=== PATIENT | male | born 1950 | race African-American/Black ===

== ENCOUNTER 2017-05-10 20:42 | Emergency (ER) | payer OTHER ==
[~2017-05-10] VITALS: Ht 165.1 cm; Wt 63.5 kg
--- NOTE | 2017-05-10 20:56 | NUR ---
ppt bibra from home to er bed 12 c/o chronic back pain. denies any recent trauma. generalized body aches. denies fever. gowned and placed on monitor. stable vitals. awaiting md silva.
--- NOTE | 2017-05-10 21:34 | NUR ---
prush pa at bedside for eval.
[2017-05-10] MEDS ORDERED: MORPHINE SULFATE INJ 4 MG/ML DISP.SYRIN ONE (21:37)
--- NOTE | 2017-05-10 21:40 | NUR ---
medicated as ordered.
[2017-05-10] MEDS ORDERED: MORPHINE SULFATE INJ 2 MG/ML DISP.SYRIN IM ONE (22:00)
--- NOTE | 2017-05-10 22:48 | NUR ---
Patient discharged to home in stable condition. Written and verbal after care instructions given. Patient verbalizes understanding of instruction.
[2017-05-10 22:49] VITALS: BP 132/74
== END 2017-05-10 22:49 | disposition home or self-care (01) ==
LOC: ER 20:43
DX: M54.5 Low back pain (principal); I10 Essential (primary) hypertension; Z88.2 Allergy status to sulfonamides
CPT/HCPCS: A4606; J2270; Z7610

== ENCOUNTER 2017-11-21 06:26 | Inpatient (IN) | payer OTHER ==
[~2017-11-21] VITALS: Ht 177.8 cm; Wt 56.4 kg
[2017-11-21 08:46] VITALS: BP 139/96
[2017-11-21 09:04] LABS: BASOPHILS % (AUTO) 0.2 % (0.0-2.0); EOSINOPHILS % (AUTO) 0.1 % (0.0-6.0); HEMATOCRIT 32 % (39-51); HEMOGLOBIN 10.7 g/dL (13.5-17.5); MEAN CORPUSCULAR HEMOGLOBIN 29 PG (26.0-33.0); MEAN CORPUSCULAR HGB CONC 33 g/dl (31.0-36.0); MEAN CORPUSCULAR VOLUME 87 fL (80-96); MONOCYTES # (AUTO) 0.6 /CMM (0.1-1.30); MONOCYTES % (AUTO) 6.4 % (2.0-12.0); NEUTROPHILS % (AUTO) 81.3 % (43.0-81.0); PLATELET COUNT (AUTO) 155 /CMM (150-450); RDW COEFFICIENT OF VARIATION 16.6 (11.5-15.0); RED BLOOD CELL COUNT(AUTO) 3.71 MIL/uL (4.5-6.0); WHITE BLOOD COUNT (AUTO) 8.7 K/uL (4.3-11.0)
[2017-11-21 09:14] LABS: CALCIUM, SERUM 8.6 mg/dL (8.5-10.1); CREATININE 0.6 mg/dL (0.6-1.3); POTASSIUM 3.8 mmol/L (3.5-5.1)
[2017-11-21 09:28] LABS: ALBUMIN 2.7 g/dL (3.4-5.0); BILIRUBIN,TOTAL 0.8 mg/dL (0.2-1.0); MAGNESIUM 2.3 mg/dL (1.8-2.4); PHOSPHORUS 2.4 mg/dL (2.5-4.9); TOTAL PROTEIN, SERUM 7.4 g/dL (6.4-8.2)
[2017-11-21] MEDS: ENOXAPARIN SODIUM 40 MG/0.4 ML DISP.SYRIN SQ SCH (09:59)
[2017-11-21] MEDS ORDERED: MAG HYDROX/AL HYDROX/SIMETH 30 ML UDC PO PRN (10:00)
[2017-11-21] MEDS ORDERED: ACETAMINOPHEN 325 MG TABLET PO PRN (10:00)
[2017-11-21] MEDS ORDERED: MORPHINE SULFATE INJ 2 MG/ML DISP.SYRIN IV PRN (10:00)
[2017-11-21] MEDS ORDERED: MAGNESIUM HYDROXIDE 30 ML UDC PO PRN (10:00)
[2017-11-21] MEDS ORDERED: ZOLPIDEM TARTRATE 5 MG TABLET PO PRN (10:00)
[2017-11-21] MEDS ORDERED: Z GUARD REMEDY 2 OZ OINT TP PRN (10:00)
[2017-11-21] MEDS ORDERED: ONDANSETRON HCL/PF 4 MG/2 ML VIAL IVP PRN (10:00)
[2017-11-21 10:17] LABS: THYROID STIMULATING HORMONE 0.534 uIU/mL (0.358-3.74)
[2017-11-21] MEDS: IV NS 0.9% 1,000 ML IV PRN (11:32)
[2017-11-21] MEDS: HYDROMORPHONE INJ 0.5 MG/0.5 ML SYRINGE IV PRN ×3 (11:35→23:38)
[2017-11-21] MEDS ORDERED: K PHOS NEUTRAL 250 MG TABLET PO ONE (13:00)
[2017-11-21] MEDS: HYDROCODONE/APAP 5/325MG 1 EACH TABLET PO PRN ×2 (15:08→21:36)
[2017-11-21 16:00] VITALS: BP 111/65
[2017-11-21 20:00] VITALS: BP_SYST 123; BP_DIAS 92; BP_DIAS 95
[2017-11-22] VITALS: BP 128/69
[2017-11-22] MEDS: HYDROCODONE/APAP 5/325MG 1 EACH TABLET PO PRN ×4 (01:40→17:40)
[2017-11-22 04:00] VITALS: BP 127/70
[2017-11-22 07:48] LABS: BASOPHILS % (AUTO) 0.3 % (0.0-2.0); EOSINOPHILS % (AUTO) 0.4 % (0.0-6.0); HEMATOCRIT 29 % (39-51); HEMOGLOBIN 9.7 g/dL (13.5-17.5); LYMPHOCYTES # (AUTO) 1.3 /CMM (0.8-4.8); LYMPHOCYTES % (AUTO) 18.6 % (20.0-44.0); MEAN CORPUSCULAR HEMOGLOBIN 29 PG (26.0-33.0); MEAN CORPUSCULAR HGB CONC 34 g/dl (31.0-36.0); MEAN CORPUSCULAR VOLUME 87 fL (80-96); MONOCYTES # (AUTO) 0.9 /CMM (0.1-1.30); MONOCYTES % (AUTO) 12.3 % (2.0-12.0); NEUTROPHILS # (AUTO) 4.9 /CMM (1.8-8.9); NEUTROPHILS % (AUTO) 68.4 % (43.0-81.0); PLATELET COUNT (AUTO) 160 /CMM (150-450); RDW COEFFICIENT OF VARIATION 16.6 (11.5-15.0); RED BLOOD CELL COUNT(AUTO) 3.32 MIL/uL (4.5-6.0); WHITE BLOOD COUNT (AUTO) 7.1 K/uL (4.3-11.0)
[2017-11-22 08:00] VITALS: BP 135/40
[2017-11-22 08:15] LABS: CALCIUM, SERUM 8.3 mg/dL (8.5-10.1); CREATININE 0.5 mg/dL (0.6-1.3); MAGNESIUM 2.3 mg/dL (1.8-2.4); PHOSPHORUS 2.2 mg/dL (2.5-4.9); POTASSIUM 3.7 mmol/L (3.5-5.1)
[2017-11-22] MEDS: ENOXAPARIN SODIUM 40 MG/0.4 ML DISP.SYRIN SQ SCH (08:15)
[2017-11-22] MEDS ORDERED: GABA800T2 PO (08:31)
[2017-11-22] MEDS ORDERED: ABAC1TAB15 PO (08:31)
[2017-11-22] MEDS ORDERED: DARU1TAB PO (08:31)
[2017-11-22] MEDS ORDERED: [UNRECOGNIZED DRUG - CODE] PO (08:31)
[2017-11-22] MEDS ORDERED: LISI40TA4 PO (08:31)
[2017-11-22] MEDS ORDERED: RILP25TA PO (08:31)
[2017-11-22] MEDS: NEUTRA PHOS 1 POWD.PACKET PO SCH ×2 (10:25→17:37)
[2017-11-22] MEDS: HYDROMORPHONE INJ 0.5 MG/0.5 ML SYRINGE IV PRN (10:26)
[2017-11-22 12:00] VITALS: BP 128/69
[2017-11-22] MEDS: IV NS 0.9% 1,000 ML IV PRN (13:54)
[2017-11-22] MEDS: SOD FERRIC GLUC 125 MG in IV NS 0.9% 100 ML IV SCH (14:15)
[2017-11-22 16:00] VITALS: BP 136/71
[2017-11-22 20:00] VITALS: BP 128/58
[2017-11-22] MEDS ORDERED: oxyCODONE/APAP (5/325 MG) 1 UDTAB TABLET PO PRN (20:00)
[2017-11-22] MEDS ORDERED: GABAPENTIN 400 MG CAPSULE PO SCH (20:00)
[2017-11-23 03:15] VITALS: BP 136/78
[2017-11-23] MEDS: HYDROCODONE/APAP 5/325MG 1 EACH TABLET PO PRN (03:18)
[2017-11-23] MEDS: HYDROMORPHONE INJ 0.5 MG/0.5 ML SYRINGE IV PRN (04:42)
[2017-11-23 08:00] VITALS: BP 134/72
[2017-11-23] MEDS: ENOXAPARIN SODIUM 40 MG/0.4 ML DISP.SYRIN SQ SCH (08:31)
[2017-11-23] MEDS: GABAPENTIN 400 MG CAPSULE PO SCH ×3 (08:37→17:02)
[2017-11-23] MEDS ORDERED: Darunavir/Cobicistat (Prezcobix 800 mg-150 mg Tablet PO SCH (09:00)
[2017-11-23] MEDS ORDERED: DULOXETINE HCL 30 MG CAPSULE.DR PO SCH (09:00)
[2017-11-23] MEDS ORDERED: LISINOPRIL (20MG) 20 MG TABLET PO SCH (09:00)
[2017-11-23] MEDS ORDERED: Abacavir/Dolutegravir/Lamivudi (Triumeq Tablet) PO SCH (09:00)
[2017-11-23] MEDS ORDERED: [UNRECOGNIZED DRUG - OTHER] PO SCH (09:00)
[2017-11-23] MEDS: BOOST PLUS FOOD-VANILLA 237 ML BOX PO SCH ×3 (09:37→17:02)
[2017-11-23] MEDS: IBUPROFEN 600 MG TABLET PO SCH ×2 (12:11→20:39)
[2017-11-23] MEDS: SOD FERRIC GLUC 125 MG in IV NS 0.9% 100 ML IV SCH (14:06)
[2017-11-23] MEDS ORDERED: IOHEXOL-300 100 ML VIAL IV ONE (15:29)
[2017-11-23 16:00] VITALS: BP 123/70
[2017-11-23] MEDS ORDERED: BOOST PLUS FOOD-CHOCLATE 237 ML BOX PO SCH (17:00)
[2017-11-23 18:40] VITALS: BP 123/70
[2017-11-23 20:00] VITALS: BP 149/80
[2017-11-24] MEDS: IBUPROFEN 600 MG TABLET PO SCH (05:47)
[2017-11-24 08:00] VITALS: BP 110/57
[2017-11-25 08:18] LABS: IMMUNOGLOBULIN A, SERUM 193 mg/dL (61-437); IMMUNOGLOBULIN G, SERUM 861 mg/dL (700-1600); IMMUNOGLOBULIN M, SERUM 65 mg/dL (20-172)
[2017-11-26 05:14] LABS: *SPE A/G RATIO 0.7 (0.7-1.7); *SPE ALBUMIN 2.4 g/dL (2.9-4.4); *SPE ALPHA-1-GLOBULIN 0.5 g/dL (0.0-0.4); *SPE GLOBULIN, TOTAL 3.3 g/dL (2.2-3.9); *SPE M-SPIKE Not Observed g/dL (Not Observed); *SPEGAMMA GLOBULIN 0.8 g/dL (0.4-1.8)
== END 2017-11-24 10:45 | disposition left against medical advice (07) | DRG 371 ==
LOC: MED 07:59 → TELE 08:17 → MED 11-22 09:40
PROVIDERS: ADMIT Internal Medicine; ATTEND Internal Medicine
PROC: 5A1D70Z Performance of Urinary Filtration, Intermittent, Less than 6 Hours Per Day (ICD-10-PCS; principal; 2017-11-22)
DX: A04.72 Enterocolitis due to Clostridium difficile, not specified as recurrent (principal); E43 Unspecified severe protein-calorie malnutrition; E83.39 Other disorders of phosphorus metabolism; F11.20 Opioid dependence, uncomplicated; D50.9 Iron deficiency anemia, unspecified; F17.200 Nicotine dependence, unspecified, uncomplicated; M47.16 Other spondylosis with myelopathy, lumbar region; Z68.1 Body mass index [BMI] 19.9 or less, adult; R64 Cachexia; D63.8 Anemia in other chronic diseases classified elsewhere; G89.3 Neoplasm related pain (acute) (chronic); E86.0 Dehydration; M79.2 Neuralgia and neuritis, unspecified; M54.9 Dorsalgia, unspecified; R62.7 Adult failure to thrive; I10 Essential (primary) hypertension; Z85.46 Personal history of malignant neoplasm of prostate
CPT/HCPCS: 36415; 71045-TC; 80048-TC; 80053-TC; 80061-TC; 82306; 82728-TC; 82746; 82784; 83540-TC; 83735-TC; 84100-TC; 84155; 84165; 84439-TC; 84443-TC; 84484-TC; 85025-TC; 85652-TC; 86334; 86706; 86803; 87045-TC; 87081-TC; 87340; 89055; 90935-TC; 93307-TC; 97110-TC; 97530-TC; A4606; J1650; J2916; J7030; Q9967; Z7610

== ENCOUNTER 2018-01-04 13:40 | Emergency (ER) | payer OTHER ==
[~2018-01-04] VITALS: Ht 182.9 cm; Wt 63.5 kg
[~2018-01-04 13:40] MED LIST: ABAC1TAB15 PO; DARU1TAB PO; GABA800T2 PO; LISI40TA4 PO; RILP25TA PO; [UNRECOGNIZED DRUG - CODE] PO
--- NOTE | 2018-01-04 13:50 | NUR ---
PT ELMER FROM HOME TO ER BED 15 C/O LOWER BACK PAIN R/T BLE. STATES CHRONIC AND IS WORST TODAY. PT STATES WAS SUPPOSED TO GO TO PT WEDNESDAY BUT TRANSPORT TO PICK HIM UP CAME LATE. DENIES ANY RECENT TRAUMA, UNABLE TO WALK AND JUST STAYS IN BED. STABLE VITALS. TAKES MOTRIN FOR PAIN AND LAST TOOK IT YESTERDAY W/ NO RELIEF. AWAITING MD PAUL.
--- NOTE | 2018-01-04 14:48 | NUR ---
DR LUIS AT BEDSIDE FOR EVAL.
[2018-01-04] MEDS ORDERED: ONDANSETRON HCL/PF 4 MG/2 ML VIAL IVP ONE (15:00)
[2018-01-04] MEDS ORDERED: MORPHINE SULFATE INJ 2 MG/ML DISP.SYRIN IV ONE (15:00)
[2018-01-04] MEDS ORDERED: ONDANSETRON HCL/PF 4 MG/2 ML VIAL ONE (15:10)
[2018-01-04] MEDS ORDERED: MORPHINE SULFATE INJ 2 MG/ML DISP.SYRIN ONE (15:11)
[2018-01-04 15:12] LABS: BASOPHILS % (AUTO) 0.6 % (0.0-2.0); EOSINOPHILS % (AUTO) 0.3 % (0.0-6.0); HEMATOCRIT 25 % (39-51); HEMOGLOBIN 8.4 g/dL (13.5-17.5); LYMPHOCYTES % (AUTO) 31.8 % (20.0-44.0); MEAN CORPUSCULAR HGB CONC 34 g/dl (31.0-36.0); MEAN CORPUSCULAR VOLUME 81 fL (80-96); MONOCYTES # (AUTO) 0.6 /CMM (0.1-1.30); MONOCYTES % (AUTO) 9.9 % (2.0-12.0); NEUTROPHILS # (AUTO) 3.7 /CMM (1.8-8.9); NEUTROPHILS % (AUTO) 57.4 % (43.0-81.0); PLATELET COUNT (AUTO) 95 /CMM (150-450); RDW COEFFICIENT OF VARIATION 18.7 (11.5-15.0); RED BLOOD CELL COUNT(AUTO) 3.12 MIL/uL (4.5-6.0); WHITE BLOOD COUNT (AUTO) 6.3 K/uL (4.3-11.0)
--- NOTE | 2018-01-04 15:12 | NUR ---
PT TO RADIOLOGY FOR ABDOMINAL CT SCAN VIA [facility].
--- NOTE | 2018-01-04 15:43 | NUR ---
PT STILL UNABLE TO URINATE. URINAL OFFERED AT BEDSIDE.
--- NOTE | 2018-01-04 15:59 | NUR ---
PT APPEARS MORE RELAXED, BUT WHEN ASKED ABOUT PAIN LEVEL PT IS STILL SAYING HE IS STILL HAVING 10/10 PAIN. STABLE VITALS.
[2018-01-04 16:17] LABS: BAND % (MANUAL) 2 % (0.0-5.0); LYMPHOCYTES % (MANUAL) 37 % (16-48); MONOCYTES % (MANUAL) 16 % (0-11.0); NEUTROPHILS % (MANUAL) 45 (42-76)
[2018-01-04 16:22] LABS: ALBUMIN 2.2 g/dL (3.4-5.0); BILIRUBIN,DIRECT 0.1 mg/dL (0.0-0.2); BILIRUBIN,TOTAL 0.4 mg/dL (0.2-1.0); CALCIUM, SERUM 7.4 mg/dL (8.5-10.1); CREATININE 0.4 mg/dL (0.6-1.3); POTASSIUM 3.5 mmol/L (3.5-5.1); TOTAL PROTEIN, SERUM 6.2 g/dL (6.4-8.2)
[2018-01-04 16:35] LABS: APPEARANCE,URINE CLEAR (CLEAR); BILIRUBIN,URINE NEGATIVE (NEGATIVE); BLOOD, URINE TRACE Ery/uL (NEGATIVE); COLOR,URINE YELLOW (YELLOW); KETONES,URINE NEGATIVE (NEGATIVE); LEUKOCYTE ESTERASE ,URINE NEGATIVE (NEGATIVE); NITRITE, URINE NEGATIVE (NEGATIVE); PH,URINE 7.5 (5.0-8.0); PROTEIN,URINE NEGATIVE (NEGATIVE); UGLUCOSE NEGATIVE (NEGATIVE)
[2018-01-04 16:37] LABS: BACTERIA,URINE None seen /HPF (None Seen); RBC,URINE 0-2 /HPF (0-2); SQUAMOUS EPITHELIAL CELL,UR Rare /HPF (None Seen); WBC,URINE 0-2 /HPF (0-3)
--- NOTE | 2018-01-04 17:26 | NUR ---
CALLED [facility] FOR TRANSPORT ETA OF 1743 WAS GIVEN.
--- NOTE | 2018-01-04 18:16 | NUR ---
[facility] AT BEDSIDE FOR PT TRANSPORT. STABLE CONDITION. D/C HOME.
[2018-01-04 18:19] VITALS: BP 150/65
[2018-01-29] MEDS ORDERED: MORPHINE SULFATE INJ 2 MG/ML DISP.SYRIN IV ONE (17:30)
[2018-01-29] MEDS ORDERED: ONDANSETRON HCL/PF 4 MG/2 ML VIAL IV ONE (17:30)
== END 2018-01-04 18:21 | disposition home or self-care (01) ==
LOC: ER 13:41
DX: G89.29 Other chronic pain (principal); M54.9 Dorsalgia, unspecified; N13.39 Other hydronephrosis; D64.9 Anemia, unspecified; R94.5 Abnormal results of liver function studies; I10 Essential (primary) hypertension; Z88.2 Allergy status to sulfonamides; Z88.8 Allergy status to other drugs, medicaments and biological substances; Z79.899 Other long term (current) drug therapy
CPT/HCPCS: 36415; 80048-TC; 80076-TC; 81000-TC; 83690-TC; 85025-TC; A4606; J2270; J2405; Z7610

== ENCOUNTER 2018-01-29 16:59 | Inpatient (IN) | payer OTHER ==
[~2018-01-29] VITALS: Ht 177.8 cm; Wt 50.1 kg
[2018-01-29 17:32] LABS: BASOPHILS # (AUTO) 0.1 /CMM (0.0-0.2); EOSINOPHILS % (AUTO) 0.1 % (0.0-6.0); HEMATOCRIT 24 % (39-51); HEMOGLOBIN 7.9 g/dL (13.5-17.5); LYMPHOCYTES # (AUTO) 2.4 /CMM (0.8-4.8); LYMPHOCYTES % (AUTO) 34.7 % (20.0-44.0); MEAN CORPUSCULAR HGB CONC 33 g/dl (31.0-36.0); MEAN CORPUSCULAR VOLUME 81 fL (80-96); MONOCYTES # (AUTO) 0.7 /CMM (0.1-1.30); MONOCYTES % (AUTO) 10.6 % (2.0-12.0); NEUTROPHILS # (AUTO) 3.7 /CMM (1.8-8.9); NEUTROPHILS % (AUTO) 53.6 % (43.0-81.0); RDW COEFFICIENT OF VARIATION 21.1 (11.5-15.0); RED BLOOD CELL COUNT(AUTO) 2.99 MIL/uL (4.5-6.0); WHITE BLOOD COUNT (AUTO) 6.9 K/uL (4.3-11.0)
[2018-01-29 17:36] LABS: PLATELET COUNT (AUTO) 45 /CMM (150-450)
--- NOTE | 2018-01-29 17:58 | NUR ---
CALLED NURSING SUP. FOR MS BED
[2018-01-29 18:00] LABS: ALBUMIN 1.9 g/dL (3.4-5.0); BILIRUBIN,DIRECT 0.1 mg/dL (0.0-0.2); BILIRUBIN,TOTAL 0.3 mg/dL (0.2-1.0); CREATININE 0.5 mg/dL (0.6-1.3); POTASSIUM 3.5 mmol/L (3.5-5.1); TOTAL PROTEIN, SERUM 6.3 g/dL (6.4-8.2)
[2018-01-29 18:43] LABS: BAND % (MANUAL) 1 % (0.0-5.0); EOSINOPHILS % (MANUAL) 1 % (0-4); LYMPHOCYTES % (MANUAL) 29 % (16-48); MONOCYTES % (MANUAL) 15 % (0-11.0); NEUTROPHILS % (MANUAL) 50 (42-76); REACTIVE LYMPHOCYTES 4 % (0-0)
--- NOTE | 2018-01-29 19:21 | NUR ---
PT STILL UNABLE TO GIVE URINE SAMPLE.
--- NOTE | 2018-01-29 20:00 | NUR ---
URINE SENT TO LAB
--- NOTE | 2018-01-29 20:24 | NUR ---
MS 326-1
[2018-01-29 20:41] LABS: APPEARANCE,URINE CLEAR (CLEAR); BILIRUBIN,URINE NEGATIVE (NEGATIVE); BLOOD, URINE TRACE Ery/uL (NEGATIVE); COLOR,URINE YELLOW (YELLOW); KETONES,URINE NEGATIVE (NEGATIVE); LEUKOCYTE ESTERASE ,URINE NEGATIVE (NEGATIVE); NITRITE, URINE NEGATIVE (NEGATIVE); PH,URINE 7.5 (5.0-8.0); PROTEIN,URINE 1+ mg/dl (NEGATIVE); UGLUCOSE NEGATIVE (NEGATIVE)
[2018-01-29 21:05] VITALS: BP 127/79
[2018-01-29 21:08] LABS: BACTERIA,URINE 1+ /HPF (None Seen); SQUAMOUS EPITHELIAL CELL,UR 0-2 /HPF (None Seen)
[2018-01-29 21:09] LABS: MUCUS,URINE Few /LPF (None Seen)
--- NOTE | 2018-01-29 21:10 | NUR ---
MS RN OPENING NOTE RECEIVED PATIENT FROM ER, ON A GURNEY. PATIENT IS ALERT ORIENTED X3, IN NO APPARENT DISTRESS OR DISCOMFORT AT THIS TIME. ON ROOM AIR. TOLERATING WELL. RESPIRATIONS EVEN AND UNLABORED. PATIENT REPORTS MILD 3/10 LOWER BACK PAIN AT THIS TIME WHEN REPOSITIONED. DENIES SOB. PATIENT WITH L AC 20G SL. PATENT AND INTACT. ADMITTED TO [facility] FLOOR. PATIENT CAME IN WITH DIAPER FOR ELIMINATION, STATES HE'S BEEN UNABLE TO WALK LATELY DUE TO SEVERE BACK PAIN. APPEARS VERY MALNOURISHED, HX OE 40LB LOSS IN THE PAST YEAR AND NEWLY DIAGNOSED PROSTATE CANCER. PATIENT WAS MADE COMFORTABLE IN BED, ALL BELONGINGS ARE CHECKED AND ACCOUNTED FOR. SAFETY MEASURES IN PLACE, BED IN LOW LOCKED POSITION, SIDE RAILS UP X2, CALL LIGHT WITHIN EASY REACH, WILL CONTINUE TO MONITOR AND CARRY OUT ALL THE ADMISSION ORDERS ACCORDINGLY.
--- NOTE | 2018-01-29 21:16 | NUR ---
PT WAS ADMITTED IN-PATIENT. TO 326
[2018-01-29] MEDS ORDERED: MORPHINE SULFATE INJ 2 MG/ML DISP.SYRIN IV PRN (22:30)
[2018-01-29] MEDS ORDERED: ONDANSETRON HCL/PF 4 MG/2 ML VIAL IVP PRN (22:30)
[2018-01-29] MEDS ORDERED: Z GUARD REMEDY 2 OZ OINT TP PRN (22:30)
[2018-01-29] MEDS ORDERED: MAGNESIUM HYDROXIDE 30 ML UDC PO PRN (22:30)
[2018-01-29] MEDS ORDERED: ACETAMINOPHEN 325 MG TABLET PO PRN (22:30)
[2018-01-29] MEDS ORDERED: MAG HYDROX/AL HYDROX/SIMETH 30 ML UDC PO PRN (22:30)
[2018-01-29] MEDS ORDERED: ZOLPIDEM TARTRATE 5 MG TABLET PO PRN (22:30)
[2018-01-29 23:00] VITALS: BP 127/79
--- NOTE | 2018-01-30 06:30 | NUR ---
RN NOTE PATIENT IN BED APPEARS IN DISTRESS, REPORTS PAIN 9/10 IN THE ABDOMINAL AREA, RADIATES TO BACK. PRECIPITATING FACTORS ARE CHANGING OF POSITION AND TRYING TO URINATE. PATIENT ASKED FOR PAIN MEDICATION. GAVE NORCO 10-325MG AT THIS TIME. WILL CONTINUE TO MONITOR.
[2018-01-30] MEDS: HYDROCODONE/APAP 10/325MG 1 EA TABLET PO PRN ×2 (06:31→20:45)
--- NOTE | 2018-01-30 07:10 | NUR ---
MSRN OPENING NOTES. PT RECEIVED A&0X3, ASLEEP BUT EASILY AWOKEN. PT TOLERATING ROOM AIR WITHOUT SOB OR RESP DISTRESS. PT DENIES REPORTS SEVERE BACK PAIN, RN ENDORSED PT HAVING ABDO PAIN ON URINATION. PT WITH IVC L AC G#20 INTACT AND SALINE FLUSH PATENT. PT INDEPENDENT WITH BED POSITIONING BUT ENCOURAGED AND ASSISTED TO OFFLOAD AND REPOSITION. PT BED IN LOWEST LOCKED POSITION WITH HANDRAILSX2 AND CALL PIMENTEL WITHIN REACH. PT BRIEFED ON TODAY'S POC AND IS WITHOUT CONCERN OR COMPLAINT.
--- NOTE | 2018-01-30 07:20 | NUR ---
MS RN CLOSING NOTE RECEIVED PATIENT IN BED, ALERT ORIENTED X3, ON ROOM IR SATURATING ABOVE 93%. PATIENT APPEARS IN DISTRESS DUE TO ABDOMINAL PAIN WHICH IS STILL NOT RESOLVED AFTER TAKING PAIN MEDICATION. DENIES SOB AT THIS TIME. REPORT GIVEN TO AM NURSE TO KEEP PATIENT MONITORED AND REASSESS WHEN NEEDED. PATIENT REPORTS HAVING THIS PAIN BEFORE AND STATES THAT IT IS DUE TO HIS PROSTATE CANCER. THE PAIN SUDDENLY STARTED ABOUT AN HOUR AGO. PATIENT WAS SLEEPING COMFORTABLE THE WHOLE NITE. ABLE TO COMMUNICATE NEEDS. LAC 20G SL PATENT AND INTACT. PATIENT WITH DVT PUMPS. WEARS DIAPER FOR ELIMINATION. NON AMBULATORY DUE TO PAIN AND GENERALIZED WEAKNESS BUT IS ORIENTED TO OWN ABILITIES. ALL NEEDS ATTENDED, SAFETY MEASURES IN PLACE, BED IN LOW LOCKED POSITION, SIDE RAILS UP X2, CALL LIGHT WITHIN EASY REACH. WILL ENDORSE TO AM NURSE FOR BUDDY.
[2018-01-30 07:44] LABS: BASOPHILS % (AUTO) 0.2 % (0.0-2.0); EOSINOPHILS % (AUTO) 0.1 % (0.0-6.0); HEMATOCRIT 25 % (39-51); HEMOGLOBIN 7.8 g/dL (13.5-17.5); LYMPHOCYTES # (AUTO) 2.3 /CMM (0.8-4.8); LYMPHOCYTES % (AUTO) 31.3 % (20.0-44.0); MEAN CORPUSCULAR HGB CONC 32 g/dl (31.0-36.0); MEAN CORPUSCULAR VOLUME 81 fL (80-96); MONOCYTES # (AUTO) 0.8 /CMM (0.1-1.30); MONOCYTES % (AUTO) 11.3 % (2.0-12.0); NEUTROPHILS # (AUTO) 4.3 /CMM (1.8-8.9); NEUTROPHILS % (AUTO) 57.1 % (43.0-81.0); RDW COEFFICIENT OF VARIATION 21.2 (11.5-15.0); RED BLOOD CELL COUNT(AUTO) 3.07 MIL/uL (4.5-6.0); WHITE BLOOD COUNT (AUTO) 7.4 K/uL (4.3-11.0)
[2018-01-30 07:59] LABS: PLATELET COUNT (AUTO) 33 /CMM (150-450)
[2018-01-30 08:00] VITALS: BP 105/64
[2018-01-30 08:32] LABS: CALCIUM, SERUM 7.8 mg/dL (8.5-10.1); CREATININE 0.5 mg/dL (0.6-1.3); MAGNESIUM 2.2 mg/dL (1.8-2.4); POTASSIUM 3.2 mmol/L (3.5-5.1)
[2018-01-30 08:40] LABS: THYROID STIMULATING HORMONE 1.058 uIU/mL (0.358-3.74)
[2018-01-30] MEDS: LISINOPRIL (10MG) 10 MG TABLET PO SCH (08:40)
[2018-01-30] MEDS: GABAPENTIN 400 MG CAPSULE PO SCH ×2 (08:48→16:58)
[2018-01-30] MEDS ORDERED: [UNRECOGNIZED DRUG - OTHER] PO SCH (09:00)
[2018-01-30 10:39] LABS: BAND % (MANUAL) 4 % (0.0-5.0); LYMPHOCYTES % (MANUAL) 36 % (16-48); MONOCYTES % (MANUAL) 13 % (0-11.0); NEUTROPHILS % (MANUAL) 47 (42-76)
[2018-01-30] MEDS: POTASSIUM CHLORIDE 20 MEQ TAB.PRT.SR PO SCH ×2 (10:47→12:13)
--- NOTE | 2018-01-30 11:20 | NUR ---
MSRN. PT NOTED WITH GURGLING WHEN USING STRAW, STRAWS REMOVED AND PROFESSOR OF FINE ART NOTIFIED. NO PROBLEMS USING CUP OR SWALLOWING FOOD. PROFESSOR OF FINE ART TO FOLLOW UP.
[2018-01-30] MEDS ORDERED: K PHOS NEUTRAL 250 MG TABLET PO ONE (12:00)
--- NOTE | 2018-01-30 12:54 | NUR ---
JONO. PT WITH EPISODE OF COUGHING AND GURGLING DURING MEAL. PT ASSISTED TO TRIPOD POSITION, AND ABLE TO EXPECTORATE. TRADESHOW WORKER HEATHER INFORMED AND PT REVIEWED. TRADESHOW WORKER REQUESTING DIET CHANGED TO NPO, ORDERS PLACED. Addendum: 01/30/18 at 1816 by DAISHA ROSENTHAL RN NPO EXCEPT MEDS
[2018-01-30] MEDS: NYSTATIN (PYXIS) 500,000 UNIT/5 ML ORAL.SUSP PO SCH ×2 (13:13→16:58)
[2018-01-30] MEDS: FLUCONAZOLE (100 MG) 100 MG TABLET PO SCH (15:11)
[2018-01-30] MEDS: HYDROCODONE/APAP 5/325MG 1 EACH TABLET PO PRN (15:11)
[2018-01-30 16:00] VITALS: BP 123/69
--- NOTE | 2018-01-30 18:16 | NUR ---
MSRN CLOSING NOTES. PT REMAINS A&0X3. PT NOW NPO AND AWAITING SWALLOW EVAL. PT TOLERATING ROOM AIR WITHOUT SOB OR RESP DISTRESS. PT REPORTS ADEQUATE PAIN MANAGEMENT AT THIS TIME- EXCEPT WHEN DURING URINATION WHERE PT REPORTS SEVERE LOWER ABDO PAIN- MD AWARE. PT WITH IVC L AC G#20 INTACT AND SL. PT ASSISTED WITH OFFLOADING AND REPOSITIONING. PT BED IN LOWEST LOCKED POSITION WITH HANDRAILSX2 AND CALL PIMENTEL WITHIN REACH. ALL DAY NURSE DUTIES ATTENDED TO AND PT IS WITHOUT CONCERN OR COMPLAINT AT THIS TIME. WILL ENDORSE TO NIGHT NURSE AT BEDSIDE FOR BUDDY.
--- NOTE | 2018-01-30 19:35 | NUR ---
MS RN OPENING NOTES RECEIVED PT LAYING IN BED WITH HOB SLIGHTLY ELEVATED. AWAKE AND RESPONSIVE. RESPIRATIONS ARE EVEN AND UNLABORED, NOT IN ANY ACUTE DISTRESS NOTED. NO C/O SOB, N/V. IV SITE INTACT, NO INFILTRATION NOTED. DRESSING KEPT CLEAN AND DRY. SAFETY MEASURES ARE IN PLACE. INSTRUCTED PT TO USE CALL LIGHT WHEN ASSISTANCE IS NEEDED, CALL LIGHT IS LEFT WITHIN REACH. WILL CONTINUE TO MONITOR THROUGHOUT SHIFT.
[2018-01-30 20:00] VITALS: BP 109/63
[2018-01-31] MEDS: HYDROCODONE/APAP 10/325MG 1 EA TABLET PO PRN ×3 (04:08→16:54)
--- NOTE | 2018-01-31 06:34 | NUR ---
MS RN CLOSING NOTES NEEDS MET AND ANTICIPATED. AWAKE AND RESPONSIVE. RESPIRATIONS ARE EVEN AND UNLABORED, NOT IN ANY ACUTE DISTRESS NOTED. NO C/O SOB, N/V. NORCO 10/325 GIVEN FOR GENERALIZED PAIN, NOTED TO BE EFFECTIVE. IV ACCESS INTACT, NO INFILTRATION NOTED. DRESSING KEPT CLEAN AND DRY. SAFETY MEASURES ARE IN PLACE. BED IS IN ITS LOW AND LOCKED POSITION. REMINDED PT TO USE CALL LIGHT WHEN ASSISTANCE IS NEEDED, CALL LIGHT IS LEFT WITHIN REACH. WILL ENDORSE TO NEXT SHIFT FOR CONTINUITY OF CARE.
--- NOTE | 2018-01-31 07:17 | NUR ---
RN OPENING NOTES RECEIVED PATIENT IN BED RESTING. NO ACUTE DISTRESS, NO SOB NOTED. DENIED PAIN OR DISCOMFORT AT THE MOMENT. IV SITE INTACT AND PATENT. KEPT PATIENT SAFE AND COMFORTABLE. BED IN LOW/LOCKED POSITION, SIDERAILS UPX2, CALL LIGHT IN REACH. WILL CONTINUE TO MONITOR ACCORDINGLY
[2018-01-31 08:00] VITALS: BP 98/54
[2018-01-31] MEDS: GABAPENTIN 400 MG CAPSULE PO SCH ×2 (08:52→16:53)
[2018-01-31] MEDS: NYSTATIN (PYXIS) 500,000 UNIT/5 ML ORAL.SUSP PO SCH ×3 (08:52→16:53)
[2018-01-31] MEDS: LISINOPRIL (10MG) 10 MG TABLET PO SCH (08:53)
--- NOTE | 2018-01-31 11:01 | NUR ---
Social service consult requested by Med Surg3 ALYSSA Lucia. Pt. is a 67 year old male who was admitted to [facility] for Back pain. SW met with pt. bedside. Pt. is alert and oriented x 4. Pt. is cooperative and pleasant. Pt. states he lives with a roommate in an apartment complex located at [address] [place] [address], [address] in [facility]. Pt's emergency contact is his friend Vinicius Lee . Pt. receives approximately $1600 per month in SSI. Pt. denies using alcohol and drugs. Pt. uses medicinal marijuana for pain. Pt. states he is unable to ambulate. Pt. does not have a wheelchair but states he is getting one. RAMOS informed pt. she will notify welfare case worker Eri Haley regarding getting a wheelchair. Pt. is dependent on his ADLS. Pt. states, his friend/roommate assists him with his ADL's and meals. No other social service needs are requested at this time. SW is available, if needed. RAMOS informed welfare case worker Eri Haley regarding a wheelchair for the pt. and possible placement, if deemed appropriate.
[2018-01-31 11:10] LABS: *% CD 8 POS. LYMPH 78.2 % (12.0-35.5); *CD4/CD8 RATIO 0.12 (0.92-3.72)
[2018-01-31 13:11] LABS: *ABSOLUTE CD 4 HELPER 144 /uL (359-1519); *ABSOLUTE CD 8 SUPPRESSOR 1251 /uL (109-897); *BASOS 0 % (Not Estab.); *COMMENTS Note: (.); *EOS 0 % (Not Estab.); *HCT 22.8 % (37.5-51.0); *HGB 7.5 g/dL (13.0-17.7); *LYMPHOCYTES 32 % (Not Estab.); *LYMPHS, ABSOLUTE 1.6 x10E3/uL (0.7-3.1); *MCH 26.7 pg (26.6-33.0); *MCHC 32.9 g/dL (31.5-35.7); *MCV 81 fL (79-97); *MONOCYTES 14 % (Not Estab.); *MONOS, ABSOLUTE 0.7 x10E3/uL (0.1-0.9); *NEUTROPHILS 53 % (Not Estab.); *NEUTROPHILS, ABSOLUTE 2.7 x10E3/uL (1.4-7.0); *NRBC 12 % (0 - 0); *PLT 46 x10E3/uL (150-379); *RBC 2.81 x10E6/uL (4.14-5.80); *RDW 20.4 % (12.3-15.4)
[2018-01-31] MEDS: FLUCONAZOLE (100 MG) 100 MG TABLET PO SCH (14:56)
[2018-01-31 16:00] VITALS: BP 108/68
--- NOTE | 2018-01-31 16:00 | NUR ---
RN NOTES FOLLOWED UP WITH PATIENT'S HOME MEDS. PER PATIENT, HIS ROOMMATE IS GOING TO BRING IT.
[2018-01-31] MEDS ORDERED: BOOST PLUS FOOD-VANILLA 237 ML BOX PO SCH (17:00)
--- NOTE | 2018-01-31 19:21 | NUR ---
RN CLOSING NOTES ALL NEEDS ATTENDED, ANTICIPATED AND PROVIDED. PATIENT IN STABLE CONDITION, KEPT PATIENT SAFE AND COMFORTABLE. BED IN LOW/LOCKED POSITION, SIDERAILS UPX2, CALL LIGHT WITHIN REACH. ENDORSED TO NIGHT RN FOR BUDDY.
[2018-01-31 20:00] VITALS: BP 104/50
--- NOTE | 2018-02-01 06:34 | NUR ---
MS RN NOTE PATIENT STABLE. ALL NEEDS MET AND ATTENDED TO. WILL ENDORSE TO DAY SHIFT FOR BUDDY.
[2018-02-01 07:40] LABS: BASOPHILS % (AUTO) 0.1 % (0.0-2.0); EOSINOPHILS % (AUTO) 0.1 % (0.0-6.0); HEMATOCRIT 21 % (39-51); LYMPHOCYTES # (AUTO) 1.6 /CMM (0.8-4.8); LYMPHOCYTES % (AUTO) 29.5 % (20.0-44.0); MEAN CORPUSCULAR HGB CONC 32 g/dl (31.0-36.0); MEAN CORPUSCULAR VOLUME 82 fL (80-96); MONOCYTES # (AUTO) 0.5 /CMM (0.1-1.30); MONOCYTES % (AUTO) 9.3 % (2.0-12.0); NEUTROPHILS # (AUTO) 3.3 /CMM (1.8-8.9); RDW COEFFICIENT OF VARIATION 22.5 (11.5-15.0); RED BLOOD CELL COUNT(AUTO) 2.59 MIL/uL (4.5-6.0); WHITE BLOOD COUNT (AUTO) 5.5 K/uL (4.3-11.0)
[2018-02-01 07:59] LABS: CALCIUM, SERUM 7.8 mg/dL (8.5-10.1); CREATININE 0.4 mg/dL (0.6-1.3); POTASSIUM 4.1 mmol/L (3.5-5.1)
[2018-02-01 08:00] VITALS: BP 112/62
[2018-02-01] MEDS: ENSURE ENLIVE 237 ML LIQUID (VANILLA) PO SCH ×3 (08:00→17:49)
[2018-02-01 08:04] LABS: HEMOGLOBIN 6.8 g/dL (13.5-17.5); PLATELET COUNT (AUTO) 48 /CMM (150-450)
--- NOTE | 2018-02-01 08:20 | NUR ---
RN NOTES NOTIFIED NIELS ALLEN NP OF CRITICAL LAB. H/H=6.8/21, PLATELET=48. ORDERS TO RECHECK CBC AT NOON. WILL MONIOTR ACCORDINGLY.
[2018-02-01] MEDS: LISINOPRIL (10MG) 10 MG TABLET PO SCH (09:00)
[2018-02-01] MEDS: GABAPENTIN 400 MG CAPSULE PO SCH ×2 (10:08→17:48)
[2018-02-01] MEDS: NYSTATIN (PYXIS) 500,000 UNIT/5 ML ORAL.SUSP PO SCH ×3 (10:08→17:48)
--- NOTE | 2018-02-01 12:00 | NUR ---
RN NOTES REPEAT CBC RESULTED. NOTIFIED NIELS ALLEN NP OF CRITICAL LEVEL, HEMOGLOBIN=6.9. NO NEW ORDERS NOTED AT THIS TIME
[2018-02-01 12:05] LABS: LYMPHOCYTES % (MANUAL) 19 % (16-48); MONOCYTES % (MANUAL) 12 % (0-11.0); NEUTROPHILS % (MANUAL) 69 (42-76)
[2018-02-01 12:29] LABS: BASOPHILS % (AUTO) 0.2 % (0.0-2.0); EOSINOPHILS % (AUTO) 0.1 % (0.0-6.0); HEMATOCRIT 22 % (39-51); LYMPHOCYTES # (AUTO) 2.1 /CMM (0.8-4.8); LYMPHOCYTES % (AUTO) 31.5 % (20.0-44.0); MEAN CORPUSCULAR HGB CONC 32 g/dl (31.0-36.0); MEAN CORPUSCULAR VOLUME 81 fL (80-96); MONOCYTES # (AUTO) 0.6 /CMM (0.1-1.30); MONOCYTES % (AUTO) 8.8 % (2.0-12.0); NEUTROPHILS # (AUTO) 3.9 /CMM (1.8-8.9); NEUTROPHILS % (AUTO) 59.4 % (43.0-81.0); PLATELET COUNT (AUTO) 53 /CMM (150-450); RDW COEFFICIENT OF VARIATION 22.3 (11.5-15.0); RED BLOOD CELL COUNT(AUTO) 2.66 MIL/uL (4.5-6.0); WHITE BLOOD COUNT (AUTO) 6.6 K/uL (4.3-11.0)
[2018-02-01 12:47] LABS: HEMOGLOBIN 6.9 g/dL (13.5-17.5)
[2018-02-01] MEDS: FLUCONAZOLE (100 MG) 100 MG TABLET PO SCH (13:23)
[2018-02-01] MEDS: HYDROCODONE/APAP 5/325MG 1 EACH TABLET PO PRN (15:42)
[2018-02-01 16:00] VITALS: BP 127/64
[2018-02-01 16:00] LABS: BAND % (MANUAL) 6 % (0.0-5.0); LYMPHOCYTES % (MANUAL) 26 % (16-48); MONOCYTES % (MANUAL) 8 % (0-11.0); MYELOCYTES % 1 % (0-0); NEUTROPHILS % (MANUAL) 59 (42-76)
--- NOTE | 2018-02-01 16:00 | NUR ---
RN NOTES FOLLOWED UP PATIENT REGARDING HIS HOME MEDS AND TRIED TO CONTACT HIS ROOM MATE BUT WOULD'NT ANSWER THE PHONE.
[2018-02-01 20:00] VITALS: BP 116/64
--- NOTE | 2018-02-01 20:04 | NUR ---
RECIEVED MR. NAM ALERT AND ORIENTATED, AND VERBALIZING HIS NEEDS. CALL LIGHT REVIEWED WITH HIM AND TOLD HIM THE IMPORTANCE OF USING THE CALL LIGHT. CONSENT FOR THE BLOOD SIGNED, BLOOD ONE UNIT ORDERED, WILL INFUSE WHEN READY.
[2018-02-01 20:07] VITALS: BP 116/64
[2018-02-01 20:09] VITALS: BP 116/64
--- NOTE | 2018-02-01 20:40 | NUR ---
lab called and told me there is an antibody identification problem and [facility] will need to be called, blood bank will let me know when the blood is ready
[2018-02-02] VITALS (8 sets, daily range): BP systolic 105–132; BP diastolic 58–66
--- NOTE | 2018-02-02 04:50 | NUR ---
CLOSING NOTES: MR. NAM IS ALERT AND ORIENTATED X3. HE IS AWARE HE IS TO RECIEVE A BLOOD TRANSFUSION ORDERED BY THE MD. H/H 6., BLOOD BANK CALLED ME @ 2019 AND STATED THAT THEY ARE CALLING THE [facility] FOR BLODD D/T HE HAS ANTIBIODIES, AND THEY WILL CALL WHEN THE BLOOD IS READY. THE CONSENT IS SIGNED. MR. NAM IS NOT SHORT OF BREAH NOR C/O ANY PAIN, HE ENJOYS CONVERSATION AND SMILE AND HAS BEEN PLEASENT THIS 12 HOURS. I HAVE NOT HAD TO MEDICAT FOR ANY C/O DISCOMFORT THIS 12 HOURS.
[2018-02-02] MEDS: ENSURE ENLIVE 237 ML LIQUID (VANILLA) PO SCH ×3 (08:00→17:49)
--- NOTE | 2018-02-02 08:00 | NUR ---
MS RN RECEIVED ON BED, AWAKE,ALERT,ORIENTED X4,NOT IN ANY FORM OF DISTRESS, RESPIRATIONS EVEN AND UNLABORED,NO SOB NOTED, LUNGS ARE DIMINISHED,ABDOMEN SOFT,POSITIVE BOWEL SOUNDS,DENIES PAIN AT THIS TIME, PATIENT FOR BLOOD TRANSFUSION, BLOOD STILL NOT AVAILABLE AT THIS TIME.ALL NEEDS ATTENDED.
[2018-02-02] MEDS: FLUCONAZOLE (100 MG) 100 MG TABLET PO SCH (09:07)
[2018-02-02] MEDS: NYSTATIN (PYXIS) 500,000 UNIT/5 ML ORAL.SUSP PO SCH ×3 (09:07→17:46)
[2018-02-02] MEDS: GABAPENTIN 400 MG CAPSULE PO SCH ×2 (09:07→17:47)
[2018-02-02] MEDS: HYDROCODONE/APAP 10/325MG 1 EA TABLET PO PRN (09:08)
[2018-02-02] MEDS: LISINOPRIL (10MG) 10 MG TABLET PO SCH (09:09)
--- NOTE | 2018-02-02 09:15 | NUR ---
MS SOLIZ BREAKFAST SERVED,DUE MEDS GIVEN,TOLERATED WELL.
--- NOTE | 2018-02-02 15:00 | NUR ---
MS RN STILL WAITING FOR THE BLOOD, NOT YET READY.
--- NOTE | 2018-02-02 17:07 | NUR ---
MS RN STARTED ONE UNIT OF BLOOD W/O ADVERSE REACTION.
--- NOTE | 2018-02-02 18:19 | NUR ---
MS RN PATIENT ON BED,NO DISTRESS NOTED,STILL BLOOD TRANSFUSION STILL GOING ON,TOLERATED WELL.
--- NOTE | 2018-02-02 19:40 | NUR ---
MS RN OPENING NOTES RECEIVED PT IN BED ALERT AWAKE, VERBALLY RESPONSIVE, ON ROOM AIR, RESPIRATIONS EVEN, UNLABORED, NO APPARENT DISTRESS NOTED. DENIES ANY PAIN OR DISCOMFORT AT THIS TIME. CURRENTLY ON BLOOD TRANSFUSION, NO ADVERSE REACTIONS NOTED, AFEBRILE. IV SITE LFA INTACT, PATENT. KEPT CLEAN AND COMFORTABLE, ATTENDED ALL NEEDS. WILL CONTINUE TO MONITOR ACCORDINGLY.
--- NOTE | 2018-02-02 20:42 | NUR ---
MS RN NOTE BLOOD TRANSFUSION COMPLETED.PT TOLERATED WELL, NO ADVERSE REACTIONS NOTED, AFEBRILE, DENIES ANY PAIN OR DISCOMFORT AT THIS TIME. ATTENDED ALL NEEDS, WILL CONTINUE TO MONITOR ACCORDINGLY.
--- NOTE | 2018-02-03 06:38 | NUR ---
MS RN CLOSING NOTES PT IN BED RESTING COMFORTABLY, NO APPARENT DISTRESS NOTED. NO S/SX OF PAIN OR DISCOMFORT NOTED. CALL LIGHT WITHIN REACH. KEPT CLEAN AND COMFORTABLE, ATTENDED ALL NEEDS. WILL ENDORSE TO DAY SHIFT FOR CONTINUITY OF CARE.
[2018-02-03 08:00] VITALS: BP 109/41
--- NOTE | 2018-02-03 08:02 | NUR ---
MS RN RECEIVED PATIENT ON BED,AWAKE,ALERT.ORIENTED X 3,NOT IN ANY FORM OF DISTRESS,RESPIRATIONS EVEN AND UNLABORED,NO SOB NOTED, LUNGS ARE DIMINISH ABDOMEN SOFT,POSITIVE BOWEL SOUNDS,DENIES PAIN AT THIS TIME, WILL MONITOR PATIENT.
[2018-02-03 08:16] LABS: BASOPHILS % (AUTO) 0.1 % (0.0-2.0); EOSINOPHILS % (AUTO) 0.2 % (0.0-6.0); HEMATOCRIT 25 % (39-51); HEMOGLOBIN 8.2 g/dL (13.5-17.5); LYMPHOCYTES % (AUTO) 30.3 % (20.0-44.0); MEAN CORPUSCULAR HGB CONC 33 g/dl (31.0-36.0); MEAN CORPUSCULAR VOLUME 83 fL (80-96); MONOCYTES # (AUTO) 0.7 /CMM (0.1-1.30); MONOCYTES % (AUTO) 10.3 % (2.0-12.0); NEUTROPHILS # (AUTO) 3.9 /CMM (1.8-8.9); NEUTROPHILS % (AUTO) 59.1 % (43.0-81.0); RDW COEFFICIENT OF VARIATION 20.4 (11.5-15.0); WHITE BLOOD COUNT (AUTO) 6.6 K/uL (4.3-11.0)
[2018-02-03 08:24] LABS: CREATININE 0.4 mg/dL (0.6-1.3); MAGNESIUM 2.3 mg/dL (1.8-2.4); POTASSIUM 4.1 mmol/L (3.5-5.1)
[2018-02-03 08:40] LABS: PLATELET COUNT (AUTO) 41 /CMM (150-450)
[2018-02-03] MEDS: LISINOPRIL (10MG) 10 MG TABLET PO SCH (09:00)
[2018-02-03 09:09] LABS: BAND % (MANUAL) 2 % (0.0-5.0); LYMPHOCYTES % (MANUAL) 28 % (16-48); MONOCYTES % (MANUAL) 17 % (0-11.0); NEUTROPHILS % (MANUAL) 53 (42-76)
--- NOTE | 2018-02-03 09:30 | NUR ---
MS SOLIZ BREAKFAST SERVED,DUE MEDS GIVEN,TOLERATED WELL.
[2018-02-03] MEDS: GABAPENTIN 400 MG CAPSULE PO SCH ×2 (09:42→17:41)
[2018-02-03] MEDS: FLUCONAZOLE (100 MG) 100 MG TABLET PO SCH (09:42)
[2018-02-03] MEDS: NYSTATIN (PYXIS) 500,000 UNIT/5 ML ORAL.SUSP PO SCH ×3 (09:42→17:41)
[2018-02-03] MEDS: ENSURE ENLIVE 237 ML LIQUID (VANILLA) PO SCH ×3 (09:44→17:42)
[2018-02-03] MEDS ORDERED: NYST5ORA PO (11:33)
[2018-02-03] MEDS ORDERED: FLUC100T8 PO (11:33)
--- NOTE | 2018-02-03 15:00 | NUR ---
MS LOAN BROKER ORDER CANCELLED, WILL MONITOR PATIENT.
[2018-02-03 16:00] VITALS: BP 128/68
[2018-02-03] MEDS ORDERED: K PHOS NEUTRAL 250 MG TABLET PO ONE (16:30)
--- NOTE | 2018-02-03 19:03 | NUR ---
MS RN ON BED, NO DISTRESS NOTED, FRIEND AT BEDSIDE, NO CHANGE OF CONDITION.
[2018-02-03 20:00] VITALS: BP 118/72
--- NOTE | 2018-02-03 20:33 | NUR ---
MS RN OPENING NOTES RECEIVED PT IN BED ALERT AWAKE, VERBALLY RESPONSIVE, ON ROOM AIR, RESPIRATIONS EVEN, UNLABORED, NO APPARENT DISTRESS NOTED. DENIES ANY PAIN OR DISCOMFORT AT THIS TIME. IV SITE LFA INTACT, PATENT. KEPT CLEAN AND COMFORTABLE, ATTENDED ALL NEEDS. WILL CONTINUE TO MONITOR ACCORDINGLY.
[2018-02-04 06:29] LABS: CALCIUM, SERUM 8.5 mg/dL (8.5-10.1); CREATININE 0.4 mg/dL (0.6-1.3); PHOSPHORUS 2.3 mg/dL (2.5-4.9); POTASSIUM 4.3 mmol/L (3.5-5.1)
--- NOTE | 2018-02-04 06:35 | NUR ---
RN CLOSING NOTES PT IN BED ALERT AWAKE, VERBALLY RESPONSIVE, ON ROOM AIR, RESPIRATIONS EVEN, UNLABORED, NO APPARENT DISTRESS NOTED. DENIES ANY PAIN OR DISCOMFORT AT THIS TIME. IV SITE LFA INTACT, PATENT. KEPT CLEAN AND COMFORTABLE, ATTENDED ALL NEEDS. WILL CONTINUE TO MONITOR ACCORDINGLY.
--- NOTE | 2018-02-04 07:22 | NUR ---
MS RN OPENING NOTES RECEIVED PATIENT IN STABLE CONDITION. IN NO APPARENT DISTRESS. BEDSIDE RAILS ARE UPX2. BED IS LOCKED AND LOWERED. IV LINE IS INTACT AND PATENT. CALL LIGHT IS WITHIN REACH. WILL CONTINUE TO MONITOR.
[2018-02-04] MEDS: ENSURE ENLIVE 237 ML LIQUID (VANILLA) PO SCH ×3 (08:00→16:57)
[2018-02-04 08:31] VITALS: BP 143/76
[2018-02-04] MEDS: NYSTATIN (PYXIS) 500,000 UNIT/5 ML ORAL.SUSP PO SCH ×3 (09:12→16:57)
[2018-02-04] MEDS: LISINOPRIL (10MG) 10 MG TABLET PO SCH (09:12)
[2018-02-04] MEDS: GABAPENTIN 400 MG CAPSULE PO SCH ×2 (09:12→16:57)
[2018-02-04] MEDS: FLUCONAZOLE (100 MG) 100 MG TABLET PO SCH (09:14)
--- NOTE | 2018-02-04 09:50 | NUR ---
CALLED DIETARY AT 0810 TO INFORM THAT ENSURE IS NOT AVAILABLE FOR THE PATIENT. I WAS RECOMMENDED TO DOUBLE CHECK BECAUSE ENSURE WAS BROUGHT UP BY DIETARY. NO ENSURE IS AVAILABLE FOR THE PATIENT YET. Addendum: 02/04/18 at 0953 by NORMA SEAMAN RN CALLED DIETARY FOR THE SECOND TIME TO ASK FOR THE ENSURE AT 0952. NO RESPONSE.
--- NOTE | 2018-02-04 11:00 | NUR ---
PATIENT REFUSED TO AMBULATE WITH PHYSICAL THERAPY.
--- NOTE | 2018-02-04 18:25 | NUR ---
TRIED CALLING SARAH TO GIVE REPORT ON PATIENT. CURRENTLY THEY ARE HAVING AN EMERGENCY. SARAH WOULD CALL BACK TO [facility] TO GET REPORT. WILL TRY AGAIN.
--- NOTE | 2018-02-04 18:26 | NUR ---
MS RN CLOSING NOTES PATIENT IN STABLE CONDITION. IN NO APPARENT DISTRESS. BEDSIDE RAILS ARE UPX2. BED IS LOCKED AND LOWERED. CALL LIGHT IS WITHIN REACH. WILL ENDORSE CARE TO PAN WASHER NURSE FOR BUDDY. IV LINE IS INTACT AND PATENT. ALL NEEDS WERE MET.
--- NOTE | 2018-02-04 18:59 | NUR ---
REPORT GIVEN TO HEYDI AYON AT [facility] [phone]. PATIENT IS GOING TO ROOM 101.
--- NOTE | 2018-02-04 19:30 | NUR ---
RN OPENING NOTES RECEIVED REPORT FROM DAYSHIFT HEYDI GREEN. Pt IS BEING DISCHARGED TONIGHT TO [facility]. HEYDI GREEN ALREADY CALLED THE FACILITY AND GAVE REPORT. TWO NEEDLE MACHINE OPERATOR TIME IS SCHEDULED FOR 1999 TON. ALL EXIT CARE HAS BEEN DONE. SPOKE WITH Pt WHO WAS RESTING IN BED. Pt IS AWARE OF DISCHARGE. Pt IS A/OX3, WITH SOME CONFUSION AT TIMES, VERBAL, ABLE TO MAKE NEEDS KNOWN. NO S/S OF ACUTE DISTRESS OR SOB NOTED. IV ACCESS ON LFA #22G, SL. WILL REMOVE IV ACCESS AND ID BAND ONCE AMBULANCE IS HERE FOR PICKUP. SAFETY MEASURES IN PLACE. BED LOW, LOCKED, HOB ELEVATED, SIDE RAILS UP, CALL LIGHT AND BEDSIDE TABLE WITHIN REACH. WILL CONTINUE TO MONITOR Pt FOR SAFETY UNTIL PICKUP FOR DISCHARGE.
[2018-02-04 20:00] VITALS: BP 147/72
--- NOTE | 2018-02-04 22:10 | NUR ---
BALLISTIC EXPERT NOTES AMBULANCE PICKUP WAS DELAYED DUE TO ER EMERGENCY TRANSFER. A DIFFERENT AMBULANCE WAS THEN SCHEDULE FOR THE SCALE BALANCER TRANSFER FOR THE Pt TO [facility]. Pt IS AWAKE AND ALERT. NO S/S OF ACUTE DISTRESS OR SOB NOTED. ALL NEEDS MET AND ATTENDED TO. SAFETY MEASURES IN PLACE. IV ACCESS WAS REMOVED AND SECURED WITH GAUZE AND TAPE. ID BANDS REMOVED. BELONGINGS ARE ALL THERE, PLACED WITH Pt ON BED. Pt WAS SAFELY TRANSFERR[place] [facility] [place]MS. VS STABLE.
--- NOTE | 2018-02-04 22:15 | NUR ---
RN NOTES CALLED [facility] TO INFORM THEM OF THE LATE PICKUP AND THAT THE Pt IS NOW ON HIS WAY OVER WITH THE AMBULANCE.
== END 2018-02-04 22:05 | DRG 542 ==
LOC: ER 17:00 → MED 20:40
PROC: 30233N1 Transfusion of Nonautologous Red Blood Cells into Peripheral Vein, Percutaneous Approach (ICD-10-PCS; principal; 2018-02-02)
DX: C79.51 Secondary malignant neoplasm of bone (principal); E43 Unspecified severe protein-calorie malnutrition; D69.59 Other secondary thrombocytopenia; B20 Human immunodeficiency virus [HIV] disease; C61 Malignant neoplasm of prostate; N13.30 Unspecified hydronephrosis; G62.9 Polyneuropathy, unspecified; R64 Cachexia; Z68.1 Body mass index [BMI] 19.9 or less, adult; I10 Essential (primary) hypertension; Z88.2 Allergy status to sulfonamides; D63.0 Anemia in neoplastic disease; E87.6 Hypokalemia; B37.9 Candidiasis, unspecified; Z91.19 Patient's noncompliance with other medical treatment and regimen
CPT/HCPCS: 36415; 80048-TC; 80061-TC; 80076-TC; 81000-TC; 82746; 83540-TC; 83735-TC; 84100-TC; 84443-TC; 85025-TC; 86360; 86850-TC; 86921-TC; 87081-TC; 87086-TC; 92521; 97110-TC; 97530-TC; A4606; J7050; P9016-BL; Z7610